=== PATIENT | female | born 1960 | race Caucasian/White ===

== ENCOUNTER → 2018-07-12 | Outpatient (CLI) | payer BC ==
--- NOTE | 2018-07-12 18:48 | Diagnostic Imaging Report ---
INDICATION: Cough. EXAMINATION: PA and lateral views of the chest were obtained at 3:12 p.m. COMPARISON: 10/24/2014. FINDINGS: Heart is normal in size. There is increasing fullness in the left hilum compared to the prior study. Hilar mass cannot be excluded. There is no consolidation, pneumothorax or pleural fluid otherwise seen. IMPRESSION: Increased left hilar prominence compared with 10/24/2014, hilar mass not excluded. Consider further evaluation with CT as clinically warranted. Dictated by: Dictated on workstation # [id number]
== END ==
LOC: RAD 14:48
PROVIDERS: ATTEND Family Medicine
DX: R06.00 Dyspnea, unspecified (principal); R05 Cough
CPT/HCPCS: 71046

== ENCOUNTER → 2018-07-14 | Outpatient (CLI) | payer BC ==
[2018-07-14 12:12] LABS: BASOPHILS % (AUTO) 0 % (0-10); EOSINOPHILS % (AUTO) 0 % (0-10); HEMATOCRIT 37 % (35-52); HEMOGLOBIN 12.7 G/DL (11.5-16.0); LYMPHOCYTES # (AUTO) 2.2 X 10^3 (1.0-4.0); LYMPHOCYTES % (AUTO) 19 % (12-44); MEAN CORPUSCULAR HEMOGLOBIN 29 PG (25-34); MEAN CORPUSCULAR HGB CONC 34 G/DL (32-36); MEAN CORPUSCULAR VOLUME 84 FL (80-99); MEAN PLATELET VOLUME 8.5 FL (7.4-10.4); MONOCYTES # (AUTO) 0.9 X 10^3 (0.0-1.0); MONOCYTES % (AUTO) 8 % (0-12); NEUTROPHILS # (AUTO) 8.2 X 10^3 (1.8-7.8); NEUTROPHILS % (AUTO) 72 % (42-75); PLATELET COUNT 294 10^3/uL (130-400); RED CELL DISTRIBUTION WIDTH 13.6 % (10.0-14.5); WHITE BLOOD COUNT 11.3 10^3/uL (4.3-11.0)
[2018-07-14 12:29] LABS: ALANINE AMINOTRANSFERASE 42 U/L (0-55); ALBUMIN 3.9 GM/DL (3.2-4.5); ALKALINE PHOSPHATASE 74 U/L (40-136); BILIRUBIN,TOTAL 0.3 MG/DL (0.1-1.0); BUN/CREATININE RATIO 21; CALCIUM 9.3 MG/DL (8.5-10.1); CARBON DIOXIDE 23 MMOL/L (21-32); CHLORIDE 107 MMOL/L (98-107); CREATININE SERUM 0.85 MG/DL (0.60-1.30); GFR ESTIMATED > 60; GLUCOSE 96 MG/DL (70-105); POTASSIUM 4.1 MMOL/L (3.6-5.0); SODIUM 137 MMOL/L (135-145); TOTAL PROTEIN 7.2 GM/DL (6.4-8.2)
[2018-07-14 12:33] LABS: INR 3.1 (0.8-1.4); PROTHROMBIN TIME PATIENT 32.3 SEC (12.2-14.7)
[2018-07-14 12:40] LABS: ERYTHROCYTE SEDIMENTATION RATE 30 MM/HR (0-30)
[2018-07-14 12:49] LABS: FIBRIN DEGRADATION PRODUCTS 3.2 UG/ML (0.00-0.49)
--- NOTE | 2018-07-14 13:57 | Diagnostic Imaging Report ---
PROCEDURE: CT angiography of the chest with contrast. TECHNIQUE: Multiple contiguous axial images were obtained through the chest after uneventful bolus administration of intravenous contrast. 2D reconstructed CTA MIP acquisitions were also performed. INDICATION: Dyspnea and cough. FINDINGS: Evaluation of the pulmonary arterial system is without evidence of thromboembolism. No filling defects are seen within central, lobar, or segmental branches. The thoracic aorta is normal in caliber. No dissection is seen. There is no pericardial or pleural fluid identified. Parenchymal evaluation does show some mild patchy airspace infiltrate in the superior segment of the left lower lobe. Otherwise, the lungs are clear. No axillary, hilar, or mediastinal lymphadenopathy is seen. Upper abdomen demonstrate postop changes of the LAP-BAND surgery to the stomach. IMPRESSION: 1. No evidence of pulmonary embolism or thoracic aortic dissection. 2. Patchy left lower lobe pneumonia. Results were called to Dr. Morgan prior to this dictation. Dictated by: Dictated on workstation # [id number]
== END ==
LOC: RAD 11:56
PROVIDERS: ATTEND Family Medicine
DX: J18.1 Lobar pneumonia, unspecified organism (principal); Z98.84 Bariatric surgery status
CPT/HCPCS: 36415; 71275; 80053; 85025; 85379; 85610; 85652

== ENCOUNTER → 2021-08-21 | Outpatient (CLI) | payer BC ==
--- NOTE | 2021-08-21 10:59 | Diagnostic Imaging Report ---
INDICATION: Constipation. Time of Exam: 10:23 AM No free air is identified. Bowel gas pattern is nonobstructed. No pathologic calcifications are seen. IMPRESSION: No acute feature detected. Dictated by: Dictated on workstation # [id number]
== END ==
LOC: RAD 09:57
PROVIDERS: ATTEND Family Medicine
DX: K59.00 Constipation, unspecified (principal)
CPT/HCPCS: 74019